=== PATIENT | male | born 1930 | race Two or more races ===

== ENCOUNTER 2016-09-07 12:15 | Emergency (ER) | payer OTHER ==
[~2016-09-07] VITALS: Ht 170.2 cm; Wt 81.6 kg
--- NOTE | 2016-09-07 12:25 | NUR ---
PT BIB [facility] C/O LLE BLEEDING FROM A WOUND THAT OCCURRED YESTERDAY FROM HITTING LEG ON CAR DOOR. PT WAS ABLE TO CONTROL BLEEDING BY PRESSURE DRESSING COLOR MAKER DYER. NAD NOTED. NO OTHER COMPLAINTS. IN ER BED 11.
[2016-09-07] MEDS ORDERED: SILVER NITRATE APPLICATOR 1 EA BOX ONE (12:57)
[2016-09-07] MEDS ORDERED: SILVER NITRATE APPLICATOR 1 EA BOX TP ONE (13:00)
[2016-09-07] MEDS ORDERED: TDAP [DIPH/PERTUSSIS/TET] 0.5 ML VIAL IM ONE ×2 (13:00→13:30)
--- NOTE | 2016-09-07 13:00 | NUR ---
PT AMBULATED TO RESTROOM AND WHEN GETTING BACK INTO ER BED, THE WOUND STARTED BLEEDING AGAIN "SPRAYING TO THE SIDE" PER DAUGHTER. MANUAL PRESSURE APPLIED. PA NOTIFIED.
--- NOTE | 2016-09-07 13:40 | NUR ---
Patient discharged to home in stable condition. Written and verbal after care instructions given. Patient verbalizes understanding of instruction. AMBULATORY WITH STEADY GAIT. PRESSURE DRESSING IN PLACE.
[2016-09-07 13:43] VITALS: BP 126/72
== END 2016-09-07 13:44 | disposition home or self-care (01) ==
LOC: ER 12:17
DX: I83.892 Varicose veins of left lower extremity with other complications (principal); I10 Essential (primary) hypertension; E78.00 Pure hypercholesterolemia, unspecified; E11.9 Type 2 diabetes mellitus without complications; Z88.0 Allergy status to penicillin; Z88.8 Allergy status to other drugs, medicaments and biological substances
CPT/HCPCS: 90715; A4606; Z7610